=== PATIENT | male | born 1980 | race Two or more races ===

== ENCOUNTER 2017-05-01 19:22 | Emergency (ER) | payer SELFPAY ==
[2017-05-01 19:41] VITALS: BMI 28.7
--- NOTE | 2017-05-01 21:17 | DR.GENAD ---
HPI - PCP Primary Care Physician: NFD - Complaint/Symptoms Chief Complaint Doctors Comments: History as stated. Denies any pain at this time. Concerned that he was not given anything for the hematoma to resolve or go away. Denies any acute pain at this time. Chief Complaint:: "I FELL OFF ROOF (9FT)ON SATURDAY WENT TO [facility] AND XRAYS WERE NEGATIVE AND THEY TOLD ME I HAD A HEMATOMA. THEY GAVE ME PAIN PILLS BUT NOTHING FOR THIS HEMATOMA." - Source History Provided: Patient - Mode of Arrival Mode of Arrival: Ambulatory - Timing Onset of Chief Complaint: 05/01/17 PMH - PMH Past Medical History: No Past Surgical History: Yes Past Surgical History Comment: EYE SURGERY-LASER - Family History History of Family Medical Conditions: No - Social History Does patient currently use any type of tobacco product: No Have you used tobacco products in the last 12 months: No Type of Tobacco Use: None Does any household member use tobacco: No Alcohol Use: None Do you use any recreational Drugs:: No Lives With: Family Lives Where: Home - infectious screening Have you traveled outside the country in the last 6 months?: No Isolation: Standard ROS - Review of Systems Constitutional: No Symptoms Reported Eyes: No Symptoms Reported ENTM: No Symptoms Reported Respiratoy: No Symptoms Reported Cardiovascular: No Symptoms Reported Gastrointestinal/Abdominal: No Symptoms Reported Genitourinary: No Symptoms Reported Neurological: No Symptoms Reported Musculoskeletal: Other (swelling on upper superior lateral back a non- erythematous soft area c/w fluid filled mass) Integumentary: No Symptoms Reported, Lesions (fluid fill mass). negative: Bruises Hematologic/Lymphatic: No Symptoms Reported Endocrine: No Symptoms Reported Psychiatric: No Symptoms Reported All Other Systems: Reviewed and Negative PE - Vital Signs Vitals: Temperature 98.6 F Pulse Rate 81 Respiratory Rate 16 Blood Pressure 125/79 O2 Sat by Pulse Oximetry 97 - General Limitations: No Limitations General Appearance: Alert, In No Apparent Distress - Head Head Exam: Normal Inspection, Atraumatic - Eyes Eye exam: Normal Appearance, PERRL, EOMI - ENT ENT Exam: Normal Exam External Ear Exam: Normal External Inspection TM/Canal Exam: Bilateral Normal Nose Exam: Normal Nose Exam Mouth Exam: Normal Inspection Throat Exam: Normal Inspection - Neck Neck Exam: Normal Inspection, Full ROM - Chest Chest Inspection: Normal Inspection, Symmetric Chest Wall Rise - Respiratory Respiratory Exam: Normal Lung Sounds Bilat Respiratory Exam: Bilateral Clear to Auscultation - Cardiovascular Cardiovascular Exam: Regular Rate, Normal Rhythm - Abdominal Exam Abdominal Exam: Normal Inspection, Normal Bowel Sounds Abdominal Tenderness: negative: RUQ, RLQ, LUQ, LLQ, Epigastrium, Suprapubic, Diffuse, Mild, Moderate, Severe, Other - Extremities Extremities Exam: Normal Inspection, Full ROM - Back Back Exam: Other (fluid filled soft mass superior lateral back, non tender). negative: Tenderness, Paraspinal Tenderness - Neurologic Neurological Exam: Alert, Oriented X3, CN II-XII Intact - Psychiatric Psychiatric Exam: Normal Affect, Normal Mood - Skin Skin Exam: Warm, Dry, Intact - Diagnosis Discharge Problem: Traumatic hematoma of lower back Qualifiers: Encounter type: subsequent encounter Qualified Code(s): S30.0XXD - Contusion of lower back and pelvis, subsequent encounter - Discharge Plan Condition: Stable - Follow ups/Referrals Follow ups/Referrals: NFD,None [Primary Care Provider] - 3 days - Instructions
[2017-05-01 21:31] VITALS: BP 122/82
== END 2017-05-01 21:30 | disposition home or self-care (01) ==
LOC: ER 19:53
DX: S30.0XXD Contusion of lower back and pelvis, subsequent encounter (principal); X58.XXXD Exposure to other specified factors, subsequent encounter
CPT/HCPCS: 99281